=== PATIENT | male | born 2000 | race African-American/Black ===

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

== ENCOUNTER 2024-07-18 21:28 | Emergency (ER) | payer MEDICAID, OTHER ==
[2024-07-18] MEDS: CEFTRIAXONE SODIUM 500MG VIAL IM ONE (21:45)
[2024-07-18] MEDS ORDERED: DOXY100T2 MT (21:55)
[2024-07-18] MEDS: LIDOCAINE HCL/PF 1% 10 MG/ML 5ML VIAL INFIL ONE (22:00)
[2024-07-18 22:02] LABS: CLARITY URINE CLEAR (CLEAR); COLOR URINE DARK YELLOW (YELLOW); GLUCOSE URINE NEGATIVE (NEGATIVE); KETONES URINE TRACE (NEGATIVE); LEUKOCYTE ESTERASE URINE NEGATIVE (NEGATIVE); NITRITE URINE NEGATIVE (NEGATIVE); OCCULT BLOOD URINE NEGATIVE (NEGATIVE); PH URINE 5.5 (4.5-8.0); PROTEIN URINE 1+ (NEGATIVE); SPECIFIC GRAVITY URINE 1.036 (1.005-1.030)
[2024-07-18 22:21] LABS: BACTERIA URINE 1+; MUCUS URINE 1+ /lpf (NONE/TRACE); RBC URINE NONE SEEN /hpf (0-2); SQUAMOUS EPITHELIAL CELL URINE RARE /lpf (RARE/1+); WBC URINE 0-2 /hpf (0-2)
[2024-07-18 22:23] VITALS: BP 116/68; PULSE 72; RESP 20; TEMP 36.78072; O2SAT 99
[2024-07-21 04:11] LABS: CHLAMYDIA TRACHOMATIS NAA Negative (Negative); NEISSERIA GONORRHOEAE NAA Negative (Negative)
== END 2024-07-18 22:29 | disposition home or self-care (01) ==
LOC: ER 21:28
DX: Z11.3 Encounter for screening for infections with a predominantly sexual mode of transmission (principal)
CPT/HCPCS: 99283; 87491; 87591; 81003; 96372; J0696; J3490